=== PATIENT | female | born 1965 | race Caucasian/White ===

== ENCOUNTER 2019-04-30 07:09 | Emergency (ER) | payer BC ==
[2019-04-30 07:30] VITALS: BP 102/70
--- NOTE | 2019-04-30 08:01 | UC ---
UC General HPI - HPI Summary HPI Summary: 53 yo female c/o R and L hip pain and pelvic pain s/p fall from horse 2 days ago. No loc. Pain mostly in R hip yesterday but L hip progressively worse since then. Able to ampulate. Some low back pain. L ischium pain. No urinary incontinence. No change in Bowel habit, does have mild baseline gi excecise d/ t polyp. + sensation in perineum ok. No distal p/d/w. No vis / aud problems. Does have chronic neck issues with periodic R 2-3rd dysesthesia, not new, but did note that had some dysesthesia yesterday, ok now. No sob /cp / palpitations. + mild tender R upper ant abd / R lat chest. No rash. No shoulder pain. - History of Current Complaint Chief Complaint: UCLowerExtremity Stated Complaint: ABDOMINAL INJURY Time Seen by Provider: 04/30/19 07:10 Hx Obtained From: Patient Pain Intensity: 2 - Allergy/Home Medications Allergies/Adverse Reactions: Allergies Allergy/AdvReac Type Severity Reaction Status Date / Time aspirin Allergy Bleeding Verified 04/30/19 07:32 fexofenadine [From Vanessa] Allergy Unknown Verified 04/30/19 07:32 Reaction Details ibuprofen Allergy See Comment Verified 04/30/19 07:32 latex Allergy Unknown Verified 04/30/19 07:32 Reaction Details pantoprazole [From Protonix] Allergy Unknown Verified 04/30/19 07:32 Reaction Details PMH/Surg Hx/FS Hx/Imm Hx - Surgical History Surgical History: Yes Surgery Procedure, Year, and Place: Lumpectomy ([facility]) - date unknown. 2012 RECTAL POLYBECTOMY - Social History Alcohol Use: Weekly Substance Use Type: None Smoking Status (MU): Never Smoked Tobacco - Immunization History Most Recent Influenza Vaccination: 2014 Most Recent Tetanus Shot: Reports up-to-date because of school (unable to recall specific date) Most Recent Pneumonia Vaccination: Never Review of Systems All Other Systems Reviewed And Are Negative: Yes Constitutional: Positive: Negative Skin: Positive: Other - see hpi Eyes: Positive: Negative ENT: Positive: Negative Respiratory: Positive: Negative Cardiovascular: Positive: Negative Gastrointestinal: Positive: Negative Genitourinary: Positive: Other - see hpi Motor: Positive: Other - see hpi Neurovascular: Positive: Other - see hpi Musculoskeletal: Positive: Other: - see hpi Neurological: Positive: Other - see hpi Psychological: Positive: Negative Is Patient Immunocompromised?: No Physical Exam Triage Information Reviewed: Yes Appearance: Well-Appearing, Well-Nourished Vital Signs: Initial Vital Signs Temp 97.9 F 04/30/19 07:24 Pulse 63 04/30/19 07:24 Resp 18 04/30/19 07:24 BP 102/70 04/30/19 07:24 Pulse Ox 100 04/30/19 07:24 Vital Signs Reviewed: Yes Eye Exam: Normal ENT Exam: Normal Neck exam: Other - chronic neck tender, no acute c/o able to move neck in all directions Respiratory Exam: Normal - see below re R lat / upper abd Cardiovascular Exam: Normal Abdominal Exam: Other - Tender distal R lat chest wall. No crepitus. No marie eccymosis. Mild Rupper ant abd tenderness. No hsm appreciated. No midepig / cva tenderness. Upper back / low back without point tenderness. Tender L ischium. R lateral hip tenderness, able to frog leg. Iliac crest nontender. Subj tender bilat ant nonbony groin. Musculoskeletal Exam: Other - see above Neurological Exam: Other - see above currently nonfocal CN 2-12 grossly intact. She reports + sens of smell ok. Moves well x 4 ext's. Strength good. Gait steady. Distal 4 ext's sens LT present. Sharpened Rhomberg 15 sec (d/c'd by examiner L foot), 8 sec R foot (d/c'd by pt) F-N-F ok x all quadrant w/o gross tremor noted. Psychological Exam: Normal Skin Exam: Normal - + eccymosis R lat calf, R lat thigh nondiaphoretic. No visible or reported rash. Course/Dx - Course Course Of Treatment: Ms. Barajas has a very tight am schedul. She is not able to stay for further imaging or results of imaging. Aware to go to the ED for any worse or new issues. Will call her with reports when available. She plans to f/u with pcp as well. Urine dip nad, incl neg blood. After Ms. Barajas's departure, I called her via telephone with imaging results. Questions as posed answered to the best of my ability. - Diagnoses Provider Diagnosis: Contusion, Blunt abdominal trauma Discharge ED - Sign-Out/Discharge Documenting (check all that apply): Patient Departure All imaging exams completed and their final reports reviewed: Yes - Discharge Plan Condition: Stable Disposition: HOME Patient Education Materials: Blunt Abdominal Injury (ED), Contusion in Adults ( ED), Safe Use of NSAIDs (ED), Hip Contusion (ED) Referrals: Suzanne Hernandez MD [Primary Care Provider] - Additional Instructions: We will call you with your reports later today. Please go to the Emergency Department for any worse or new problems. = - Billing Disposition and Condition Condition: STABLE Disposition: Home
== END 2019-04-30 08:23 | disposition home or self-care (01) ==
LOC: UCEAST 07:09
DX: S70.11XA Contusion of right thigh, initial encounter (principal); S80.11XA Contusion of right lower leg, initial encounter; S39.91XA Unspecified injury of abdomen, initial encounter; M25.551 Pain in right hip; M25.552 Pain in left hip; M54.2 Cervicalgia; V80.010A Animal-rider injured by fall from or being thrown from horse in noncollision accident, initial encounter; Z88.8 Allergy status to other drugs, medicaments and biological substances; Z91.040 Latex allergy status
CPT/HCPCS: 71046; 72050; 72110; 73523; 81003; 99211; G0463